=== PATIENT | male | born 1980 | race African-American/Black ===

== ENCOUNTER 2023-03-12 01:59 | Emergency (ER) | payer MEDICAID ==
[~2023-03-12] VITALS: Ht 165.1 cm; Wt 77.0 kg
[2023-03-12 02:23] VITALS: O2SAT 97
[2023-03-12] MEDS ORDERED: AMOX500T2 MT (04:08)
[2023-03-12] MEDS ORDERED: DIPH25CA83 MT (04:08)
[2023-03-12 04:21] VITALS: BP 119/75; PULSE 90; RESP 18; TEMP 102.7
== END 2023-03-12 04:20 | disposition home or self-care (01) ==
LOC: ER 02:35
DX: J02.9 Acute pharyngitis, unspecified (principal); R13.10 Dysphagia, unspecified; J45.909 Unspecified asthma, uncomplicated
CPT/HCPCS: 99281; 99283

== ENCOUNTER 2024-05-22 19:07 | Emergency (ER) | payer MEDICAID ==
[~2024-05-22] VITALS: Ht 162.6 cm; Wt 72.6 kg
[~2024-05-22 19:07] MED LIST: AMOX500T2 MT; DIPH25CA83 MT
[2024-05-22 19:15] VITALS: O2SAT 99
[2024-05-22] MEDS: ACETAMINOPHEN 325MG TABLET PO ONE (20:15)
[2024-05-22] MEDS ORDERED: IBUP-2028 MT (21:19)
[2024-05-22] MEDS ORDERED: SULF1TAB48 MT (21:19)
[2024-05-22] MEDS ORDERED: CEPH500C2 MT (21:19)
[2024-05-22] MEDS: LIDOCAINE HCL/EPINEPHRINE 1%-EPI 1:100,000 20ML VIAL INFIL ONE (21:30)
[2024-05-22] MEDS: BACITRACIN ZINC OINT UDPKT TOP ONE (21:30)
[2024-05-22 22:10] VITALS: BP 110/68; PULSE 67; RESP 16; TEMP 36.94740; O2SAT 100
== END 2024-05-22 22:55 | disposition home or self-care (01) ==
LOC: ER 19:07
DX: L02.31 Cutaneous abscess of buttock (principal); Z79.899 Other long term (current) drug therapy
CPT/HCPCS: 10060; 99283; J3490; Z7610 ×4

== ENCOUNTER 2024-05-24 08:14 | Emergency (ER) | payer MEDICAID ==
[~2024-05-24] VITALS: Ht 165.1 cm; Wt 71.0 kg
[~2024-05-24 08:14] MED LIST changes: +CEPH500C2 MT; +IBUP-2028 MT; +SULF1TAB48 MT
[2024-05-24 08:21] VITALS: O2SAT 100
[2024-05-24 10:08] VITALS: BP 115/71; PULSE 64; RESP 12; TEMP 36.55848; O2SAT 98
== END 2024-05-24 10:06 | disposition home or self-care (01) ==
LOC: ER 08:14
DX: L02.31 Cutaneous abscess of buttock (principal); Z48.817 Encounter for surgical aftercare following surgery on the skin and subcutaneous tissue; Z79.899 Other long term (current) drug therapy
CPT/HCPCS: 99281